=== PATIENT | female | born 1990 | race Native Hawaiian/Other Pacific Islander ===

== ENCOUNTER 2016-07-21 20:06 | Emergency (ER) | payer OTHER ==
[2016-07-21 20:24] VITALS: RESP 16; TEMP 97.2; O2SAT 99
[2016-07-21] MEDS ORDERED: Sodium Chloride 0.9% 1,000 ML IV STA (21:03)
--- NOTE | 2016-07-21 21:39 | ED PDOC ---
HPI: General Adult Time Seen by Provider: 07/21/16 20:25 Chief Complaint (Nursing): GI Problem History Per: Patient Additional Complaint(s): Pt. states this morning she woke up feeling very dizzy and she attempted to get up from bed but was unable. Shortly after she developed multiple episodes of non -bloody vomiting. Also reports developing diffuse crampy abdominal pain after the vomiting occurred. Denies diarrhea, hematemesis, fever, head injury, headache, hearing changes, chest pain, palpitations. Past Medical History Reviewed: Historical Data, Nursing Documentation, Vital Signs Vital Signs: Last Vital Signs Temp 97.2 F L 07/21/16 20:23 Pulse 62 07/21/16 20:23 Resp 16 07/21/16 20:23 BP 125/47 L 07/21/16 20:23 Pulse Ox 99 07/21/16 21:40 - Family History Family History: States: No Known Family Hx - Home Medications Home Medications: Ambulatory Orders Medication Instructions Recorded Meclizine HCl [Motion Sickness 1 - 2 tab PO Q8 PRN #10 tab 07/22/16 Relief] Ondansetron ODT [Zofran ODT] 4 mg PO TID #21 odt 07/22/16 - Allergies Allergies/Adverse Reactions: Allergies Allergy/AdvReac Type Severity Reaction Status Date / Time Penicillins Allergy RASH Verified 07/21/16 20:21 Review of Systems ROS Statement: Except As Marked, All Systems Reviewed And Found Negative Gastrointestinal: Positive for: Nausea, Vomiting Neurological: Positive for: Dizziness Physical Exam - Reviewed Nursing Documentation Reviewed: Yes Vital Signs Reviewed: Yes - Physical Exam Appears: Positive for: Well, Non-toxic, No Acute Distress Head Exam: Positive for: ATRAUMATIC, NORMAL INSPECTION, NORMOCEPHALIC Skin: Positive for: Normal Color, Warm. Negative for: Rash Eye Exam: Positive for: EOMI, Normal appearance, PERRL ENT: Positive for: Normal ENT Inspection Neck: Positive for: Normal, Painless ROM Cardiovascular/Chest: Positive for: Regular Rate, Rhythm Respiratory: Positive for: CNT, Normal Breath Sounds Gastrointestinal/Abdominal: Positive for: Normal Exam, Soft. Negative for: Tenderness Back: Positive for: Normal Inspection Extremity: Positive for: Normal ROM Neurologic/Psych: Positive for: Alert, Oriented - Laboratory Results Result Diagrams: 07/21/16 21:40 07/21/16 21:40 - ECG ECG Rhythm: Positive for: Sinus Bradycardia. Negative for: ST/T Changes Rate: 48 O2 Sat by Pulse Oximetry: 99 - Progress ED Course And Treament: Labs ordered. Zofran 4mg IV, antivert 25mg PO, IV NS bolus given. Re-evaluation Time: 00:28 (Gait steady and unassisted.) Condition: Re-examined, Improved Disposition - Clinical Impression Clinical Impression: Vertigo - Patient ED Disposition Is Patient to be Admitted: No - Disposition Referrals: [facility] [Outside] Disposition: Routine/Home Disposition Time: 00:29 Condition: IMPROVED Prescriptions: Meclizine HCl [Motion Sickness Relief] 1 - 2 tab PO Q8 PRN #10 tab PRN Reason: Dizziness Ondansetron ODT [Zofran ODT] 4 mg PO TID #21 odt Instructions: Vertigo (ED)
[2016-07-21 21:53] LABS: BASO # 0.1 K/uL (0.0-0.2); BASO % 0.8 % (0.0-2.0); EOS # 0.1 K/uL (0.0-0.7); EOS % 0.9 % (0.0-4.0); HEMATOCRIT 38.5 % (34.0-47.0); LYMPH # 1.9 K/uL (1.0-4.3); LYMPH % 23.7 % (20.0-40.0); MEAN CELL VOLUME 87.4 fl (81.0-99.0); MEAN CORPUSCULAR HEMOGLOBIN 28.1 pg (27.0-31.0); MEAN CORPUSCULAR HGB CONC 32.2 g/dL (33.0-37.0); MEAN PLATELET VOLUME 9.6 fl (7.2-11.7); MONO # 0.5 K/uL (0.0-0.8); MONO % 5.9 % (0.0-10.0); NEUT # 5.6 K/uL (1.8-7.0); NEUT % 68.7 % (50.0-75.0); RED CELL DISTRIBUTION WIDTH 14.8 % (11.5-14.5); WHITE BLOOD COUNT 8.1 K/uL (4.8-10.8)
[2016-07-21 22:00] LABS: RBC URINE 8 /hpf (0-3); URINE BILIRUBIN NEGATIVE (NEGATIVE); URINE BLOOD NEGATIVE (NEGATIVE); URINE COLOR YELLOW (YELLOW); URINE GLUCOSE (UA) NEG (Normal); URINE KETONE TRACE mg/dL (NEGATIVE); URINE LEUKOCYTE ESTERASE NEG Leu/uL (Negative); URINE PROTEIN 100 mg/dL (NEGATIVE); URINE UROBILINOGEN 0.2-1.0 mg/dL (0.2-1.0); WBC CLUMPS MANY /hpf; WBC URINE 33 /hpf (0-5)
[2016-07-21 22:06] LABS: ALB/GLOB RATIO 1.5 (1.0-2.1); ALKALINE PHOSPHATASE 53 U/L (38-126); ALT/SGPT 26 U/L (9-52); AST/SGOT 23 U/L (14-36); BILIRUBIN,TOTAL 0.3 mg/dl (0.2-1.3); BLOOD UREA NITROGEN 11 mg/dl (7-17); CALCIUM 9.3 mg/dL (8.4-10.2); CARBON DIOXIDE 23 mmol/L (22-30); CHLORIDE 109 mmol/L (98-107); GFR AFRICAN-AMERICAN > 60; GLUCOSE,RANDOM 90 mg/dL (65-105); LIPASE 76 U/L (23-300); POTASSIUM 3.8 MMOL/L (3.6-5.0); SODIUM 142 mmol/l (132-148); TOTAL PROTEIN 7.6 G/DL (6.3-8.2)
[2016-07-22 01:40] VITALS: BP 99/63; PULSE 57
--- NOTE | 2016-07-22 14:49 | CARD ---
APPROVED REPORT EKG Measurement Heart [id number] <Conclusion> Sinus bradycardia Incomplete right bundle branch block Borderline ECG
== END 2016-07-22 01:10 | disposition home or self-care (01) ==
LOC: H.ER 20:06
DX: R42 Dizziness and giddiness (principal); R11.10 Vomiting, unspecified; R10.9 Unspecified abdominal pain; R00.1 Bradycardia, unspecified; Z88.0 Allergy status to penicillin